=== PATIENT | male | born 1980 | race Two or more races ===

== ENCOUNTER 2024-12-03 20:43 | Emergency (ER) | payer BC, OTHER ==
[~2024-12-03] VITALS: Ht 170.2 cm; Wt 91.3 kg
[2024-12-03 20:47] VITALS: BP 143/96; PULSE 99; RESP 18; TEMP 97.8; O2SAT 98
--- NOTE | 2024-12-03 20:57 | ED.PDOC ---
GI ASSESSMENT HPI Comments 44 y/o MALOK presents to the ED for CC of abdominal pain. EMS reports, patient is coming from [facility] where he compalined of epigastric abdominal pain, with associated hypotension. Patient states, he has been experiencing epigastric abdominal pain with associated nausea and vomiting, onset this morning. Patient relays, that he has been unable to have a bowel movement x2days. Patient endorses, x8 episodes of emesis today (12/03/24). Patient was given Zofran 8mg and 1L IV fluids at [facility]; additional 4mg of Zofran was given by EMS in route to ED. Patient denies fever, chills body aches, change in diet, melena, or blood streaked bowels. No other symptoms or modifying factors present at this time. Chief Complaint: Abdominal Pain Time Seen by MD: 20:50 Reviewed Notes: Nurses Notes, Event Representative Notes, Medications, Allergies Allergies: Coded Allergies: NO KNOWN ALLERGIES (Unverified , 12/03/24) Information Source: Patient, Emergency Med Personnel Mode of Arrival: EMS Timing: Hours Duration: Since onset Prehospital treatment: IVF, Other (Zofran) Quality: None Vomitus: None Stool: Impaction Severity: Moderate Recent: None Recent Hx of: None Pain Location: Epigastric, None Modifying Factors: Nothing Associated sign and symptoms: None Past Medical History PAST MEDICAL HISTORY: Denies Surgical History: Denies all surgeries Family History Family History: Unknown Social History Smoker: Non-Smoker Alcohol: Occasionally Drugs: Denies Drug Use Lives In: Home Constitutional: denies: chills, diaphoresis, fatigue, fever, malaise, sweats, weakness, others EENTM: denies: blurred vision, double vision, ear bleeding, ear discharge, ear drainage, ear pain, ear ringing, eye pain, eye redness, hearing loss, mouth pain, mouth swelling, nasal discharge, nose bleeding, nose congestion, nose pain, photophobia, tearing, throat pain, throat swelling, voice changes, others Respiratory: denies: cough, hemoptysis, orthopnea, SOB at rest, shortness of breath, SOB with excertion, stridor, wheezing, others Cardiovascular: denies: chest pain, dizzy spells, diaphoresis, Dyspnea on exertion, edema, irregular heart beat, left arm pain, lightheadedness, palpitations, PND, syncope, others Gastrointestinal: reports: abdominal pain, nausea, vomiting; denies: abdomen distended, blood streaked bowels, constipated, diarrhea, dysphagia, difficulty swallowing, hematemesis, melena, poor appetite, poor fluid intake, rectal bleeding, rectal pain, others Genitourinary: denies: burning, dysuria, flank pain, frequency, hematuria, incontinence, penile discharge, penile sore, pain, testicle pain, testicle swelling, urgency, others Neurological: denies: dizziness, fainting, headache, left sided numbness, left sided weakness, numbness, paresthesia, pre-existing deficit, right sided numbness, right sided weakness, seizure, speech problems, tingling, tremors, weakness, others Musculoskeletal: denies: back pain, gout, joint pain, joint swelling, muscle pain, muscle stiffness, neck pain, others Integumetry: denies: bruises, change in color, change in hair/nails, dryness, laceration, lesions, lumps, rash, wounds, others Allergic/Immunocompromised: denies: Difficulty Healing, Frequent Infections, Hives, Itching, others Hematologic/Lymphatic: denies: anemia, blood clots, easy bleeding, easy bruising, swollen glands, others Endocrine: denies: excessive hunger, excessive sweating, excessive thirst, excessive urination, flushing, intolerance to cold, intolerance to heat, unexplained weight gain, unexplained weight loss, others Psychiatric: denies: anxiety, bipolar disorder, depression, hopeless, panic disorder, schizophrenia, sleepless, suicidal, others All Other Systems: Reviewed and Negative Physical Exam General Appearance: Moderate Distress HEENT: Normal ENT Inspection, Pharynx Normal, TMs Normal Neck: Full Range of Motion, Non-Tender, Normal, Normal Inspection Respiratory: Chest Non-Tender, Lungs Clear, No Accessory Muscle Use, No Respiratory Distress, Normal Breath Sounds Cardiovascular: No Edema, No JVD, No Murmur, No Gallop, Normal Peripheral Pulses, Regular Rate/Rhythm Breast Exam: Deferred Gastrointestinal: LLQ, LUQ, No Organomegaly, No Pulsatile Mass, Normal Bowel Sounds, Soft, Tenderness Genitalia: Deferred Pelvic: Deferred Rectal: Deferred Extremities: No calf tenderness, Normal capillary refill, Normal inspection, Normal range of motion, Non-tender, No pedal edema Musculoskeletal : Apperance: Normal Neurologic: Alert, corporate counsel II-XII nml as Tested, No Motor Deficits, Normal Affect, Normal Mood, No Sensory Deficits Cerebellar Function: Normal Reflexes: Normal Skin: Dry, Normal Color, Warm Lymphatic: No Adenopathy Was a procedure done? Was a procedure done?: No GI differential Dx Differential Diagnosis: Gastritis/PUD, Gastroenteritis, Electrolyte Imbalance, Food Poisoning, Bacterial, Viral X-Ray, Labs, Meds, VS Vital Signs Date Time Temp Pulse Resp B/P (MAP) Pulse Ox O2 Delivery O2 Flow Rate FiO2 12/03/24 20:47 97.8 99 18 143/96 (112) 98 97.8 Lab Test 12/03/24 20:56 Range/Units White Blood Count 14.7 H 4.4-10.8 10^3/uL Red Blood Count 5.18 4.5-5.90 10^6/uL Hemoglobin 16.0 13.5-17.5 g/dL Hematocrit 48.2 41.0-53.0 % Mean Corpuscular Volume 93.1 80.0-100.0 fL Mean Corpuscular Hemoglobin 30.8 28.0-32.0 pg Mean Corpuscular Hemoglobin Concent 33.1 32.0-36.0 g/dL Red Cell Distribution Width 13.0 11.8-14.3 % Platelet Count 296 140-450 10^3/uL Mean Platelet Volume 7.2 6.9-10.8 fL Neutrophils (%) (Auto) 90.4 H 37.0-80.0 % Lymphocytes (%) (Auto) 5.6 L 10.0-50.0 % Monocytes (%) (Auto) 3.8 0.0-12.0 % Eosinophils (%) (Auto) 0.0 0.0-7.0 % Basophils (%) (Auto) 0.2 0.0-2.0 % Neutrophils # (Auto) 13.3 H 1.6-8.6 10 ^3/uL Lymphocytes # (Auto) 0.8 0.4-5.4 10 ^3/uL Monocytes # (Auto) 0.6 0-1.3 10 ^3/uL Eosinophils # (Auto) 0 0-0.8 10 ^3/uL Basophils # (Auto) 0 0-0.2 10 ^3/uL Nucleated Red Blood Cells 0.0 % Sodium Level 138 136-145 mmol/L Potassium Level 4.6 3.5-5.1 mmol/L Chloride Level 105 98-107 mmol/L Carbon Dioxide Level 27 20-31 mmol/L Anion Gap 6 5-15 Blood Urea Nitrogen 19 9-23 mg/dL Creatinine 1.34 H 0.700-1.30 mg/dL Glomerular Filtration Rate Calc 66 >90 mL/min BUN/Creatinine Ratio 14.2 10.0-20.0 Serum Glucose 146 H 74-106 mg/dL Calcium Level 10.1 8.7-10.4 mg/dL Total Bilirubin 1.0 0.2-1.0 mg/dL Aspartate Amino Transferase (AST) 40 13-40 U/L Alanine Aminotransferase (ALT) 86 H 7-40 U/L Alkaline Phosphatase 82 46-116 U/L Total Protein 7.8 5.7-8.2 g/dL Albumin 5.0 H 3.2-4.8 g/dL Lipase 29 12-53 U/L The CBC shows an elevated white blood cell count of 14.7 The rest of the CBC is within normal limits The chemistry panel shows a BUN of 19 and a creatinine of 1.34 The lipase is within normal limits At this time, the CT scan of the abdomen and pelvis shows: IMPRESSION: 1. Hepatic steatosis. 2. 11-12 mm nonobstructing calculus left kidney 3. Punctate calculus within the bladder on the left consistent with recently passed ureteral calculus. The patient was being admitted at this time Images Reviewed?: Images reviewed and evaluated by me Time of 1ST Reevaluation: 21:20 Reevaluation 1ST: Unchanged Patient Education/Counseling: Diagnosis, Treatment Family Education/Counseling: No Family Present Departure 1 Departure Time of Disposition: 21:58 Impression: Primary Impression: Intractable abdominal pain Additional Impression: Kidney stone Disposition: 09 ADMITTED INPATIENT Admit to: Med Surg Condition: Fair Critical Care Note Critical Care Time?: No Stability Stability form required: Yes Unstable for transfer: ED Physician Assesment (Clinical assesment) Heart Score Heart Score: Heart Score Response (Comments) Value History N/A 0 EKG N/A 0 Age N/A 0 Risk Factors N/A 0 Troponin N/A 0 Total 0 I personally scribed for SANIA WALLACE MD ([email or web address]) on 12/03/24 at 20:57. Electronically submitted by Brandi Betts ([email or web address]). SANIA WALLACE MD Dec 03, 2024 20:57
[2024-12-03] MEDS ORDERED: ONDANSETRON HCL 4 MG/2 ML VIAL IV ONE (21:00)
[2024-12-03] MEDS ORDERED: PANTOPRAZOLE 40 MG/10 ML VIAL INJ IV ONE (21:00)
[2024-12-03] MEDS ORDERED: MORPHINE SULFATE 4 MG/ML SYR/VIAL IV ONE (21:00)
[2024-12-03 21:08] LABS: Basophils # (auto) 0 10 ^3/uL (0-0.2); Basophils % (auto) 0.2 % (0.0-2.0); Eosinophils # (auto) 0 10 ^3/uL (0-0.8); Hematocrit 48.2 % (41.0-53.0); Lymphocytes # (auto) 0.8 10 ^3/uL (0.4-5.4); Lymphocytes % (auto) 5.6 % (10.0-50.0); Mean Corpuscular Hemoglobin 30.8 pg (28.0-32.0); Mean Corpuscular Hgb Conc. 33.1 g/dL (32.0-36.0); Mean Corpuscular Volume 93.1 fL (80.0-100.0); Monocytes # (auto) 0.6 10 ^3/uL (0-1.3); Monocytes % (auto) 3.8 % (0.0-12.0); Neutrophils # (auto) 13.3 10 ^3/uL (1.6-8.6); Neutrophils % (auto) 90.4 % (37.0-80.0); Platelet Count (auto) 296 10^3/uL (140-450); Red Blood Cells 5.18 10^6/uL (4.5-5.90); White Blood Cell 14.7 10^3/uL (4.4-10.8)
[2024-12-03 21:23] LABS: Alkaline Phosphatase 82 U/L (46-116); Anion Gap 6 (5-15); BUN/Creatinine Ratio 14.2 (10.0-20.0); Blood Urea Nitrogen 19 mg/dL (9-23); Calcium 10.1 mg/dL (8.7-10.4); Carbon Dioxide 27 mmol/L (20-31); Chloride 105 mmol/L (98-107); Lipase 29 U/L (12-53); Potassium 4.6 mmol/L (3.5-5.1); Sodium 138 mmol/L (136-145); Total Protein 7.8 g/dL (5.7-8.2)
[2024-12-03 21:31] LABS: Alanine Aminotransferase 86 U/L (7-40); Aspartate Aminotransferase 40 U/L (13-40); Glucose 146 mg/dL (74-106)
--- NOTE | 2024-12-03 21:47 | DVH ---
Exam: CT CT AB PEL WO CON-NO ORAL OR IV History: PAIN Comparison Study: None available at time of dictation. TECHNIQUE: Multidetector CT of the abdomen was performed from lung bases to pubic symphysis. Imaging was performed without IV contrast. Axial, coronal and sagittal multiplanar reformats were obtained fr om the axial data set by the technologist. Radiation Dose Information: CT Dose: CTDI volume is 13.52 mGy. Dose-length product is 918.5 mGy*cm FINDINGS: Evaluation of solid organs is limited due to lack of intravenous contrast use. Findings: Lung Bases: No acute or significant lung base finding. Normal heart size. No pleural or pericardial effusion. Liver: The liver is normal in size. No focal lesions. Changes suggesting hepatic steatosis Gallbladder and Biliary Tree: No calcified gallstones Spleen: Unremarkable Pancreas: The pancreas is grossly normal in appearance. Adrenal Glands: Unremarkable Kidneys: 11-12 mm calculus in the left renal pelvis. Bladder: Within the bladder on the left. Series 2 image 85 Bowel: The stomach is grossly normal in appearance. Small bowel and colon are normal in caliber and d istribution. Sigmoid diverticulosis with no free air or free fluid. The appendix is not visualized; however, no secondary findings of acute appendicitis identified. Ascites: Absent Lymphadenopathy: No mesenteric, retroperitoneal or periportal lymphadenopathy. Abdominal Wall and Mesentery: Unremarkable. Vasculature: The visualized abdominal aorta is normal in size and caliber. Evaluation of abdominal a nd pelvic vessels is limited due to lack of intravenous contrast. Pelvic Organs: Unremarkable Musculoskeletal: No aggressive focal bony lesions, acute fractures or dislocation. Soft tissues: Unremarkable IMPRESSION: 1. Hepatic steatosis. 2. 11-12 mm nonobstructing calculus left kidney 3. Punctate calculus within the bladder on the left consistent with recently passed ureteral calculus . Radiation optimization: All CT scans at this facility use at least one of these dose optimization consuelo hniques: automated exposure control mA and/or kV adjustment per patient size (includes targeted exam s where dose is matched to clinical indication) or iterative reconstruction.
== END 2024-12-03 23:39 | disposition left against medical advice (07) ==
LOC: EDBD 20:43 → ER 20:43
DX: N20.0 Calculus of kidney (principal); R10.13 Epigastric pain
CPT/HCPCS: 36415; 74176; 80053; 83690; 85025

== ENCOUNTER 2025-07-04 19:24 | Emergency (ER) | payer BC ==
[~2025-07-04] VITALS: Ht 172.7 cm; Wt 91.0 kg
--- NOTE | 2025-07-04 19:46 | ED.PDOC ---
General HPI Comments 44 y/o M is BIBA from private residence for c/c of left testicular pain. Per EMS personnel report, patient endorses on waking up to pain at 1000, this morning. Pain is stated to have, suddenly, worsened over the past hour prior to ED arrival after being constant all day. He, initially, rated it a 10/10 in severity and states on it radiating to his the left side of his lower abdomen and flank. Associated symptoms of nausea and constipation. No endorsed recent ailments, injuries, strenuous or sexual activities, or pertinent medical or surgical history. On scene, patient was found with a blood glucose of 133. En route, he was given Tylenol and 50ug Fentanyl. Patient, now, reports pain to be a 6/10 in severity. Denies any urinary problems, vomiting, fever, chills, or further acute symptoms. Chief Complaint: Flank Pain Time Seen by MD: 19:30 Reviewed notes: Nurses Notes, Director Work Notes, Medications, Allergies Allergies: Coded Allergies: NO KNOWN ALLERGIES (Unverified , 12/03/24) Home Meds Active Scripts Gabapentin (Once-Daily) (Gabapentin) 300 Mg Tab, 300 MG PO Q6HP PRN, #60 TAB Prov:HOLLIE CHERRY MD 07/04/25 Information Source: Patient, Emergency Med Personnel Mode of Arrival: EMS Severity: Moderate Inability to void: None Timing: Hours Duration: Since onset Prehospital treatment: 12 Lead EKG, Accucheck (133), Pain Meds (Tylenol and 50ug Fentanyl ) Past Medical History PAST MEDICAL HISTORY: Denies Surgical History: Denies all surgeries Family History Family History: Unknown Social History Smoker: Non-Smoker Alcohol: Occasionally Drugs: Denies Drug Use Lives In: Home All Other Systems: Reviewed and Negative (Comprehensive review of systems are negative unless stated in HPI) Physical Exam General Appearance: No Apparent Distress, Obese HEENT: Normal ENT Inspection, Pharynx Normal, TMs Normal Neck: Full Range of Motion, Non-Tender, Normal, Normal Inspection Respiratory: Chest Non-Tender, Lungs Clear, No Accessory Muscle Use, No Respiratory Distress, Normal Breath Sounds Cardiovascular: No Edema, No JVD, No Murmur, No Gallop, Normal Peripheral Pulses, Regular Rate/Rhythm Breast Exam: Deferred Gastrointestinal: No Organomegaly, Non Tender, No Pulsatile Mass, Normal Bowel Sounds, Soft Genitalia: Testicle (tenderness to the left testicle) Pelvic: Deferred Rectal: Deferred Extremities: No calf tenderness, Normal capillary refill, Normal inspection, Normal range of motion, Non-tender, No pedal edema Musculoskeletal : Apperance: Normal Neurologic: Alert, motion study analyst II-XII nml as Tested, No Motor Deficits, Normal Affect, Normal Mood, No Sensory Deficits Cerebellar Function: Normal Reflexes: Normal Skin: Dry, Normal Color, Warm Lymphatic: No Adenopathy Was a procedure done? Was a procedure done?: No Differential Diagnosis Kidney stone (Female): N/A Kidney stone (Male): N/A Penile/Scrotal: STD, UTI, Hydrocele, Testicular Torsion, Other (varicocele) Urinary Problem (Male): N/A Urinary Problem (Female): N/A X-Ray, Labs, Meds, VS Vital Signs Date Time Temp Pulse Resp B/P (MAP) Pulse Ox O2 Delivery O2 Flow Rate FiO2 07/04/25 23:51 94 17 96 Room Air 07/04/25 23:51 98.4 94 17 115/83 (94) 96 98.4 07/04/25 22:02 89 18 128/87 07/04/25 19:24 98.1 84 18 138/95 96 98.1 Lab Test 07/04/25 19:43 Range/Units White Blood Count 12.3 H 4.4-10.8 10^3/uL Red Blood Count 4.85 4.5-5.90 10^6/uL Hemoglobin 15.3 13.5-17.5 g/dL Hematocrit 44.8 41.0-53.0 % Mean Corpuscular Volume 92.3 80.0-100.0 fL Mean Corpuscular Hemoglobin 31.6 28.0-32.0 pg Mean Corpuscular Hemoglobin Concent 34.2 32.0-36.0 g/dL Red Cell Distribution Width 12.9 11.8-14.3 % Platelet Count 292 140-450 10^3/uL Mean Platelet Volume 7.5 6.9-10.8 fL Neutrophils (%) (Auto) 74.8 37.0-80.0 % Lymphocytes (%) (Auto) 15.6 10.0-50.0 % Monocytes (%) (Auto) 8.5 0.0-12.0 % Eosinophils (%) (Auto) 0.8 0.0-7.0 % Basophils (%) (Auto) 0.3 0.0-2.0 % Neutrophils # (Auto) 9.2 H 1.6-8.6 10 ^3/uL Lymphocytes # (Auto) 1.9 0.4-5.4 10 ^3/uL Monocytes # (Auto) 1.0 0-1.3 10 ^3/uL Eosinophils # (Auto) 0.1 0-0.8 10 ^3/uL Basophils # (Auto) 0 0-0.2 10 ^3/uL Nucleated Red Blood Cells 0.0 % Sodium Level 138 136-145 mmol/L Potassium Level 3.9 3.5-5.1 mmol/L Chloride Level 104 98-107 mmol/L Carbon Dioxide Level 24 20-31 mmol/L Anion Gap 10 5-15 Blood Urea Nitrogen 14 9-23 mg/dL Creatinine 1.08 0.700-1.30 mg/dL Glomerular Filtration Rate Calc 86 >90 mL/min BUN/Creatinine Ratio 13.0 10.0-20.0 Serum Glucose 122 H 74-106 mg/dL Calcium Level 9.6 8.7-10.4 mg/dL Total Bilirubin 0.6 0.2-1.0 mg/dL Aspartate Amino Transferase (AST) 29 13-40 U/L Alanine Aminotransferase (ALT) 46 H 7-40 U/L Alkaline Phosphatase 91 46-116 U/L Total Protein 6.9 5.7-8.2 g/dL Albumin 4.1 3.2-4.8 g/dL Current Medications Medications (Trade) Dose Ordered Sig/Randi Route Start Time Stop Time Status Last Admin Hydromorphone HCl (Dilaudid Injection) 1 mg ONCE ONCE IV 07/04/25 22:00 07/04/25 22:01 DC 07/04/25 22:02 Ondansetron HCl (Zofran) 4 mg ONCE ONCE IV 07/04/25 22:00 07/04/25 22:01 DC 07/04/25 21:[address] [address] Ph: [phone] DIAGNOSTIC IMAGING Diagnostic Imaging Report : [id number] Signed PATIENT: ALICIA TRAORE ACCT: [id number] UNIT: [id number] : 1980 LOC: ER ROOM / BED: / AGE / SEX: 44 / M ADM STATUS: REG ER SERVICE 35 ORDERING PHYSICIAN: HOLLIE CHERRY MD PROCEDURE(s): TESUS - TESTICULAR ULTRASOUND REASON: left testicle pain ORDER NUMBER(s): [id number], ACCESSION NUMBER(s): [id number] SCROTAL ULTRASOUND REASON FOR EXAM: left testicle pain COMPARISON: None TECHNIQUE: Real-time sector scans and duplex color flow Doppler imaging of the scrotal contents was performed. FINDINGS: The right testicle measures 3.5 x 1.9 x 2.5 cm. The left testicle measures 3.0 x 2.0 x 2.9 cm. No testicular mass is identified. Expected flow is seen within the right and left testicle. There is no hyperemia. There is no evidence of hydrocele or varicocele. The epididymides are normal in size. There is a tiny 0.3 cm left epididymal head cyst, within normal limits. There is fat within the left inguinal canal, possibly an inguinal hernia. IMPRESSION: Normal appearance of the testes and epididymides. Fat within the left inguinal canal. Correlate clinically for possible left inguinal hernia. ATED BY: MARKEL GOLDMAN MD DICTATED DATE/TIME: 07/04/252102 SIGNED BY: MARKEL GOLDMAN MD SIGNED DATE/TIME: 07/04/252102 CC: Time of 1ST Reevaluation: 20:00 Reevaluation 1ST: Unchanged Patient Education/Counseling: Diagnosis, Treatment, Need For Follow Up Family Education/Counseling: No Family Present SEPSIS Sepsis Screen Date sepsis recognized/suspect: Jul 04, 2025 Time Sepsis recognized/suspect: 1923 Recent Procedure: No On Antibiotic Therapy: No Respiratory Rate >20: No Heart Rate >90: No Temp<36 C (96.8 F) or >38.3 C: No SBP <90 or MAP <65 mmHG: No New Acute Mental Status Change: No Is the patient on CPAP, BIPAP,: No Physician Orders Testicular Ultrasound (07/04/25 19:36) Vital Signs Date Time Temp Pulse Resp B/P (MAP) Pulse Ox O2 Delivery O2 Flow Rate FiO2 07/04/25 23:51 94 17 96 Room Air 11/2/25 23:51 98.4 94 17 115/83 (94) 96 98.4 07/04/25 22:02 89 18 128/87 07/04/25 19:24 98.1 84 18 138/95 96 98.1 Laboratory Tests Test 07/04/25 19:43 White Blood Count 12.3 10^3/uL (4.4-10.8) H Medications Medications Dose Ordered Sig/Randi Route Start Time Stop Time Status Last Admin Dose Admin Hydromorphone HCl 1 mg ONCE ONCE IV 07/04/25 22:00 07/04/25 22:01 DC 07/04/25 22:02 Ondansetron HCl 4 mg ONCE ONCE IV 07/04/25 22:00 07/04/25 22:01 DC 07/04/25 21:59 Departure 1 Departure Time of Disposition: 22:00 Impression: Primary Impression: Left inguinal hernia Disposition: HOME / SELF CARE / HOMELESS Condition: Stable e-Prescriptions Gabapentin (Once-Daily) (Gabapentin) 300 Mg Tab 300 MG PO Q6HP PRN, #60 TAB Prov: HOLLIE CHERRY MD 07/04/25 Discharged With: Self Critical Care Note Critical Care Time?: No Stability Stability form required: No Heart Score Heart Score: Heart Score Response (Comments) Value History N/A 0 EKG N/A 0 Age N/A 0 Risk Factors N/A 0 Troponin N/A 0 Total 0 I personally scribed for HOLLIE CHERRY MD ([email or web address]) on 07/04/25 at 19:46. Electronically submitted by Magan Spivey ([email or web address]). I personally scribed for HOLLIE CHERRY MD ([email or web address]) on 07/04/25 at 21:37. Electronically submitted by Magan Spivey ([email or web address]). HOLLIE CHERRY MD Jul 04, 2025 19:46
[2025-07-04 19:58] LABS: Hematocrit 44.8 % (41.0-53.0); Hemoglobin 15.3 g/dL (13.5-17.5); Mean Corpuscular Hemoglobin 31.6 pg (28.0-32.0); Mean Corpuscular Volume 92.3 fL (80.0-100.0); Nucleated Red Blood Cells % 0.0 %
[2025-07-04 20:07] LABS: Albumin 4.1 g/dL (3.2-4.8); Alkaline Phosphatase 91 U/L (46-116); Anion Gap 10 (5-15); BUN/Creatinine Ratio 13.0 (10.0-20.0); Blood Urea Nitrogen 14 mg/dL (9-23); Calcium 9.6 mg/dL (8.7-10.4); Carbon Dioxide 24 mmol/L (20-31); Chloride 104 mmol/L (98-107); Potassium 3.9 mmol/L (3.5-5.1); Sodium 138 mmol/L (136-145); Total Protein 6.9 g/dL (5.7-8.2)
[2025-07-04 20:08] LABS: Bilirubin, Total 0.6 mg/dL (0.2-1.0)
[2025-07-04 20:09] LABS: Alanine Aminotransferase 46 U/L (7-40); Glucose 122 mg/dL (74-106)
--- NOTE | 2025-07-04 21:05 | DVH ---
SCROTAL ULTRASOUND REASON FOR EXAM: left testicle pain COMPARISON: None TECHNIQUE: Real-time sector scans and duplex color flow Doppler imaging of the scrotal contents was performed. FINDINGS: The right testicle measures 3.5 x 1.9 x 2.5 cm. The left testicle measures 3.0 x 2.0 x 2.9 cm. No testicular mass is identified. Expected flow is seen within the right and left testicle. There is no hyperemia. There is no evidence of hydrocele or varicocele. The epididymides are normal in size. There is a tin y 0.3 cm left epididymal head cyst, within normal limits. There is fat within the left inguinal canal, possibly an inguinal hernia. IMPRESSION: Normal appearance of the testes and epididymides. Fat within the left inguinal canal. Correlate clinically for possible left inguinal hernia.
[2025-07-04] MEDS: ONDANSETRON HCL 4 MG/2 ML VIAL IV ONE (21:59)
[2025-07-04] MEDS: HYDROmorphone HCL 2 MG/ML VL/or syr IV ONE (22:02)
[2025-07-04] MEDS ORDERED: GABA300T4 PO (23:26)
[2025-07-04 23:51] VITALS: BP 115/83; PULSE 94; RESP 17; TEMP 98.4; O2SAT 96
== END 2025-07-04 23:52 | disposition home or self-care (01) ==
LOC: ER 19:24 → EDUNIT# 19:24 → EDBD 19:24 → ER 23:52
DX: K40.90 Unilateral inguinal hernia, without obstruction or gangrene, not specified as recurrent (principal); F10.90 Alcohol use, unspecified, uncomplicated; Z79.899 Other long term (current) drug therapy; Y90.9 Presence of alcohol in blood, level not specified
CPT/HCPCS: 36415; 76870; 80053; 85025; 96374; 96375; 99285; J1171; J2405

== ENCOUNTER 2025-07-23 03:32 | Emergency (ER) | payer BC ==
[~2025-07-23] VITALS: Ht 170.2 cm; Wt 92.7 kg
[~2025-07-23 03:32] MED LIST: GABA300T4 PO
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
--- NOTE | 2025-07-23 06:26 | DVH ---
EXAM: CT HEAD WITHOUT CONTRAST INDICATION: [facility] TECHNIQUE: CT of the head without intravenous contrast. Coronal and sagittal reformatted images are submitted. Radiation Dose : 1. Head: CT Dose: CTDI volume is 64.86 mGy. Dose-length product is 1276.2 mGy*cm The dose indicators for CT are the volume Computed Tomography (CT) Dose Index (CTDIvol) and the Dose Length Product (DLP), and are measured in units of mGy and mGy-cm, respectively. These indicators are not patient dose, but values generated from the CT scanner acquisition factors. The report includes radiation exposure data for exposures received during this examination. All CT scans at this medical facility are performed using dose modulation techniques as appropriate to a performed exam including the following: Automated exposure control was utilized; adjustment of the MA and/or KV according to patient size; and use of iterative reconstruction technique. COMPARISON: None FINDINGS: There is no evidence of acute intracranial hemorrhage, extra-axial collection, mass effect, midline shift, herniation or hydrocephalus. The ventricles, sulci and cisterns are age appropriate. There is an 8 mm filling defect in the right transverse sinus. The ulloa-white differentiation is intact. The visualized paranasal sinuses and mastoid air cells are clear. No depressed calvarial fracture. The surrounding soft tissues are unremarkable. IMPRESSION: 1. No evidence of acute intracranial abnormality. 2. Filling defect in the right transverse sinus measuring 8 mm. MRI of the brain with MR venogram is recommended for further evaluation.
--- NOTE | 2025-07-23 06:35 | DVH ---
EXAM: CT CERVICAL WITHOUT CONTRAST INDICATION: [facility] EXAM DATE: 07/23/2025 05:38 AM COMPARISON: None. TECHNIQUE: Multiple axial CT images of the cervical spine were obtained using bone algorithm. Axial and coronal reformatting was done. Bone and soft tissue windows were reviewed. Radiation Dose Information: CT Dose: CTDI volume is 25.21 mGy. Dose-length product is 654.9 mGy*cm FINDINGS: The cervical alignment is intact. There is reversal of the cervical lordosis. No acute cervical spine fracture is identified. The vertebral body heights are intact. No suspicious osseous lesions are identified. No significant spinal stenosis. No significant neural foraminal stenosis. There is no prevertebral soft tissue swelling. Lung apices are clear. IMPRESSION: 1. No evidence of acute cervical spine fracture or traumatic malalignment. 2. Reversal of the cervical lordosis which may be positional versus muscle spasm.
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
[2025-07-23 07:05] LABS: Urine Protein, UAD Negative (Negative)
[2025-07-23 09:18] LABS: Hematocrit 47.0 % (41.0-53.0); Hemoglobin 16.1 g/dL (13.5-17.5); Mean Corpuscular Hemoglobin 31.5 pg (28.0-32.0); Mean Corpuscular Volume 92.1 fL (80.0-100.0); Nucleated Red Blood Cells % 0.1 %
[2025-07-23 09:23] LABS: Chloride 105 mmol/L (98-107); Potassium 3.9 mmol/L (3.5-5.1); Sodium 141 mmol/L (136-145)
[2025-07-23 09:24] LABS: Anion Gap 12 (5-15); Calcium 9.8 mg/dL (8.7-10.4); Carbon Dioxide 24 mmol/L (20-31)
[2025-07-23 09:29] LABS: BUN/Creatinine Ratio 20.0 (10.0-20.0); Blood Urea Nitrogen 17 mg/dL (9-23); Glucose 99 mg/dL (74-106)
[2025-07-23 10:05] VITALS: PULSE 76; RESP 12; O2SAT 96
[2025-07-23] MEDS: KETOROLAC TROMETH 30 MG/ML 1ML VIAL IV ONE (10:09)
[2025-07-23] MEDS: METOCLOPRAMIDE HCL 5MG/ml INJ 2ml VIAL IV ONE (10:09)
[2025-07-23] MEDS ORDERED: METOCLOPRAMIDE HCL 5MG/ml INJ 2ml VIAL ONE (10:10)
--- NOTE | 2025-07-23 10:56 | DVH ---
CHEST RADIOGRAPH Indication: baseline Technique: Single frontal view of the chest was obtained Comparison: None FINDINGS: Lines and Tubes: None Lungs: No focal consolidation. Pleura: No effusion. No pneumothorax. Cardiomediastinal contours: Unremarkable Bones: No acute osseous abnormality. IMPRESSION: 1. No acute cardiopulmonary disease.
[2025-07-23 11:00] VITALS: BP 121/75; PULSE 62; RESP 13; TEMP 98.2; O2SAT 98
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
== END 2025-07-24 03:35 | disposition short-term general hospital (02) ==
LOC: ER 03:32
DX: R93.0 Abnormal findings on diagnostic imaging of skull and head, not elsewhere classified (principal); F10.90 Alcohol use, unspecified, uncomplicated; Z79.899 Other long term (current) drug therapy; V59.40XA Driver of pick-up truck or van injured in collision with unspecified motor vehicles in traffic accident, initial encounter; Y93.89 Activity, other specified; Y92.488 Other paved roadways as the place of occurrence of the external cause; Y99.8 Other external cause status
CPT/HCPCS: 36415; 70450; 71045; 71250; 72125; 74176; 80048; 81001; 85025; 96374; 96375; 99285; J1885; J2765